=== PATIENT | female | born 1930 | race Caucasian/White ===

== ENCOUNTER 2018-12-10 11:33 | Emergency (ER) | payer MEDICARE ==
[~2018-12-10] VITALS: Ht 162.6 cm; Wt 70.3 kg
[~2018-12-10 11:33] MED LIST: COUMADIN3 MG PO; FLECAINIDE ACE100 MG PO; SIMVASTATIN20 MG PO; TOPROL XL25 MG PO; XARELTO20 MG PO
--- OUTSIDE RECORDS SUMMARY | 2018-12-10 11:36 | XMS REPORT | Continuity of Care Document ---
Author Author [facility] Address [address] [place] [address] Care Team Providers Care Poultry Raiser Name Role Phone [facility] PHYSICIAN, OUT OF PCP Unavailable Sharer, Marilu Cordoba Rndphys Larry Mitchell Admphys Larry Mitchell Attphys Micky Riggins Rndphys Allergies, Adverse Reactions, Alerts Allergen Type Severity Reaction Last Updated Verified Status No Known Drug Allergies Allergy July 01, 2018 Y Active Medications Active Medications Medication Dose Units Route Sig Qty Days Start Date Discontinued Date Status Instructions Metoprolol Succinate 25 MG PO Twice Daily July 03, 2018 Active Flecainide 50 MG PO Twice Daily July 03, 2018 Active Atorvastatin Calcium 40 MG PO Bedtime 30 July 03, 2018 Active Rivaroxaban 15 MG PO Every Evening With Supper 30 July 03, 2018 Active Discontinued Medications Medication Dose Units Route Sig Qty Days Start Date Discontinued Date Status Instructions Rivaroxaban 20 MG PO Daily July 01, 2018 July 03, 2018 Discontinued Aspirin 81 MG PO Daily July 03, 2018 July 03, 2018 Discontinued Problem List Active Problems Medical Problem Onset Date Status Paroxysmal A-fib Active Altered mental status Active Stroke Active Procedures Procedure Date Status Urine Culture July 02, 2018 active MRI Brain WO Con July 01, 2018 completed US Carotid Doppler STANDARD July 01, [address] Brain WO Con June 30, 2018 completed EKG 12 Lead in Emergency Room June 30, 2018 completed Relevant Diagnostic Tests and/or Laboratory Data Laboratory Results Test Date/Time Result Interp. Ref. Range Result Comment Bedside Glucose June 30, 2018 9:17pm 102 mg/dL 70-110 Sodium Level July 01, 2018 3:29am 138 mmol/L 136-145 Potassium Level July 01, 2018 3:29am 4.3 mmol/L 3.5-5.1 Chloride Level July 01, 2018 3:29am 106 mmol/L 98-107 Carbon Dioxide Level July 01, 2018 3:29am 26 mmol/L 23-31 Anion Gap July 01, 2018 3:29am 10 mmol/L 10-20 Blood Urea Nitrogen July 01, 2018 3:29am 18 mg/dL 9.8-20.1 Creatinine July 01, 2018 3:29am 0.82 mg/dL 0.6-1.1 Estimated GFR (MDRD) July 01, 2018 3:29am 66 Reference Range for Estimated GFR: Greater than 90 mL/min/1.73 m2 NOTE: The MDRD equation has not been validated for use with the elderly (over 70 years of age), women, patients with serious comorbid condition or persons with extremes of body size, muscle mass, or nutritional status. Glucose Level July 01, 2018 3:29am 113 mg/dL High 83-110 Calcium Level July 01, 2018 3:29am 9.2 mg/dL 7.8-10.44 Total Bilirubin June 30, 2018 9:18pm 0.6 mg/dL 0.2-1.2 Serum Total Protein June 30, 2018 9:18pm 7.3 g/dL 6.0-8.3 Albumin June 30, 2018 9:18pm 4.6 g/dL 3.4-4.8 Globulin June 30, 2018 9:18pm 2.7 g/dL 2.4-3.5 Albumin/Globulin Ratio June 30, 2018 9:18pm 1.7 g/dL 1.2-2.2 Cholesterol Level July 01, 2018 3:29am 157 mg/dl Alkaline Phosphatase June 30, 2018 9:18pm 75 U/L 40-150 Aspartate Amino Transf (AST/SGOT) June 30, 2018 9:18pm 17 U/L 5-34 Creatine Kinase June 30, 2018 9:18pm 64 U/L 29-168 Troponin I June 30, 2018 9:18pm Less than 0.010 ng/mL Reference Range 0.00 - 0.028 ng/mL Negative 0.029 - 0.29 ng/mL Indeterminate Greater or Equal to 0.3 ng/mL Strongly suggests PA Alanine Aminotransferase (ALT/SGPT) June 30, 2018 9:18pm 11 U/L 8-55 Triglycerides Level July 01, 2018 3:29am 69 mg/dL HDL Cholesterol July 01, 2018 3:29am 53 mg/dL Adult HDL levels in terms of risk for Coronary Heart Disease > or Equal to 60 mg/dL Negative Risk < 40 mg/dL HIGH Risk LDL Cholesterol, Calculated July 01, 2018 3:29am 90 mg/dL Levels in terms of risk for coronary heart disease: Desirable: Less than 130 mg/dL Borderline High Risk: 130 - 159 mg/dL High Risk: Greater than 160 mg/dL Coronary Heart Disease Risk Ratio July 01, 2018 3:29am 3.0 Adult levels in terms of risk for Coronary Heart Disease: Dangerous level: Greater than 8.3 High: 5.6 - 8.3 Average: 3.7 - 5.6 Below average: 2.5 - 3.7 Protection probable: Less than 2.5 White Blood Count July 01, 2018 3:29am 8.2 thou/uL 4.8-10.8 Red Blood Count July 01, 2018 3:29am 4.27 mill/uL 4.20-5.40 Hemoglobin July 01, 2018 3:29am 13.1 g/dL 12.0-16.0 Hematocrit July 01, 2018 3:29am 39.3 % 36.0-47.0 Mean Corpuscular Volume July 01, 2018 3:29am 92.1 fL 78.0-98.0 Mean Corpuscular Hemoglobin July 01, 2018 3:29am 30.8 pg 27.0-31.0 Mean Corpuscular Hemoglobin Concent July 01, 2018 3:29am 33.4 g/dL 32.0-36.0 Red Cell Distribution Width July 01, 2018 3:29am 11.9 % 11.5-14.5 Platelet Count July 01, 2018 3:29am 227 thou/uL 130-400 Mean Platelet Volume July 01, 2018 3:29am 6.7 fL Low 7.4-10.4 Neutrophils % July 01, 2018 3:29am 79.2 % High 42.0-75.0 Lymphocytes % July 01, 2018 3:29am 12.0 % Low 21.0-51.0 Monocytes % July 01, 2018 3:29am 6.7 % 0.0-10.0 Eosinophils % July 01, 2018 3:29am 1.9 % 0.0-10.0 Basophils % July 01, 2018 3:29am 0.2 % 0.0-1.0 Neutrophils # July 01, 2018 3:29am 6.5 thou/uL 1.40-6.50 Lymphocytes # July 01, 2018 3:29am 1.0 thou/uL Low 1.20-3.40 Monocytes # July 01, 2018 3:29am 0.6 thou/uL High 0.11-0.59 Eosinophils # July 01, 2018 3:29am 0.2 thou/uL 0.0-0.7 Basophils # July 01, 2018 3:29am 0.0 thou/uL 0.0-0.2 Prothrombin Time June 30, 2018 9:18pm 13.3 SEC 12.0-14.7 INR International Normalized Ratio June 30, 2018 9:18pm 1.0 ATTENTION: READ CAREFULLY The recommended therapeutic ranges for oral anticoagulant treatments are: Low Intensity: 1.5 - 2.0 Moderate Intensity: 2.0 - 3.0 High Intensity (1): 2.5 - 3.5 High Intensity (2): 3.0 - 4.0 CRITICAL: > 4.0 Activated Partial Thromboplast Time June 30, 2018 9:18pm 34.6 SEC 22.9-36.1 Urine Color July 02, 2018 11:59pm YELLOW Urine Clarity July 02, 2018 11:59pm CLEAR Urine Specific Mellen July 02, 2018 11:59pm 1.005 1.002-1.036 Urine pH July 02, 2018 11:59pm 7.0 5.0-9.0 Urine Leukocyte Esterase July 02, 2018 11:59pm Trace High Urine Nitrite July 02, 2018 11:59pm Negative Urine Protein July 02, 2018 11:59pm Negative mg/dL Urine Glucose (UA) July 02, 2018 11:59pm Negative mg/dL Urine Ketones July 02, 2018 11:59pm Negative mg/dL Urine Urobilinogen July 02, 2018 11:59pm 0.2 mg/dL Urine Bilirubin July 02, 2018 11:59pm Negative Urine Blood July 02, 2018 11:59pm Negative Urine RBC July 02, 2018 11:59pm 0-3 HPF Urine WBC July 02, 2018 11:59pm 0-3 HPF Urine Squamous Epithelial Cells July 02, 2018 11:59pm None Seen HPF Urine Bacteria July 02, 2018 11:59pm None Seen HPF Urine Hyaline Casts July 02, 2018 11:59pm 0-3 HYALINE CAST LPF Urine Culture Reflexed July 02, 2018 11:59pm Yes Chief Complaint and Reason for Visit Encounter Admit Date Chief Complaint Reason for Visit Discharged Inpatient July 01, 2018 4:40pm TIA VS CVA Altered mental status Paroxysmal atrial fibrillation Cerebrovascular accident (CVA) Hospital Discharge Instructions No known hospital discharge instructions. Hospital Discharge Medications Medication Dose Units Route Sig Qty Days Order Date Status Instructions Rivaroxaban 20 MG PO Daily July 01, 2018 Discontinued Aspirin 81 MG PO Daily July 03, 2018 Discontinued Metoprolol Succinate 25 MG PO Twice Daily July 03, 2018 Active Flecainide 50 MG PO Twice Daily July 03, 2018 Active Atorvastatin Calcium 40 MG PO Bedtime 30 July 03, 2018 Active Rivaroxaban 15 MG PO Every Evening With Supper 30 July 03, 2018 Active Encounters Encounter Facility Location Admit Date Discharge Date Attending Provider Discharged Inpatient [facility] [address] July 01, 2018 4:40pm July 03, 2018 4:44pm Larry Mitchell Encounter Diagnosis Onset Date Altered mental status Paroxysmal atrial fibrillation Cerebrovascular accident (CVA) Family History Query Response Instance Date Recorded Comment Family Stroke No Mother July 01, 2018 2:30pm Family Stroke No Father July 01, 2018 2:30pm Family Myocardial Infarction No Mother July 01, 2018 2:30pm Family Myocardial Infarction No Father July 01, 2018 2:30pm Family Diabetes No Mother July 01, 2018 2:30pm Family Diabetes No Father July 01, 2018 2:30pm Family Coronary Artery Disease Yes Mother July 01, 2018 2:30pm Family Coronary Artery Disease No Father July 01, 2018 2:30pm Family Congenital Heart Disease No Mother July 01, 2018 2:30pm Family Congenital Heart Disease No Father July 01, 2018 2:30pm Family Colorectal Cancer No Mother July 01, 2018 2:30pm Family Colorectal Cancer No Father July 01, 2018 2:30pm Family Breast Cancer No Mother July 01, 2018 2:30pm Family Breast Cancer No Father July 01, 2018 2:30pm Functional Status No known functional status. Immunizations No known immunizations. Payers Payer Name Policy Type Covered Green Party Covered Green Party Id Relationship Subscriber Subscriber Id AARP Commercial URSULA BARRAZA [id number] SELF URSULA BARRAZA [id number] MEDICARE Medicare Part A URSULA BARRAZA [id number] SELF URSULA BARRAZA [id number] Plan of Care Instructions Atrial Flutter Ischemic Stroke, [id number] AFTER HOSPITAL CARE PLAN and EDUCATION ISCHEMIC STROKE You have experienced an Ischemic Stroke, which occurs when arteries are blocked by blood clots or by the gradual build-up of plaque or other fatty deposits. Almost 85% of all strokes are ischemic. Risk Factors for Cerebrovascular Accident (Stroke) and TIA *Modifiable risk factors: [ ] High blood pressure: The most important risk factor for stroke. This can be controlled with medications, a healthier diet and maintaining proper body weight. Your Blood Pressure: [ ] Heart disease: Persons with heart disease are twice as likely to suffer a stroke than people with normal hearts. [ ] Cigarette smoking: Stopping smoking reduces the risk of stroke, even in long-time smokers. [ ] High red blood count: Increased red blood cells thicken the blood and make clots more likely. "Blood thinners" may be a necessary treatment. [ ] Transient Ischemic Attacks (TIAs): These are strong predictors of stroke. [ ] High blood cholesterol: Your LDL: [ ] Diabetes: Your Blood Sugar: [ ] Drug/Alcohol abuse [ ] Physical Inactivity [ ] Obesity [ ] Oral contraceptive use [ ] High levels of stress *Non-Modifiable risk factors: Age: Older people are at greater risk than younger people. Gender: Men are at greater risk than women. Race: -Americans have a much greater risk of and disability. Prior Stroke Family History Take your Medications as Prescribed! Follow Up: It is critical that you follow up with your physician after discharge. Talk to them about risk factors, medications, diet and exercise. If you must cancel your appointment, it is very important to reschedule. Warning Signs of Stroke: -Sudden weakness/paralysis or numbness/decreased sensation of the face, arm or leg on one side of the body. -Sudden dimness or loss of vision, particularly in one eye. -Loss of speech, or trouble talking or understanding speech. -Impaired judgment and thought processes. -Impaired swallowing. -Sudden severe headaches with no apparent cause, often described as "the worst headache I've ever had." -Unexplained dizziness, unsteadiness or sudden falls, especially along with any of the previous symptoms. Any one of these signs could mean a stroke, so act F.A.S.T.: F stands for Face (Look for uneven smile). A stands for Arm (Check if one arm is weak). S stands for Speech (Listen for slurred speech). T stands for Time (Call 911 right away). Stroke is an emergency!! If you experience any of these symptoms, call 911 immediately. Treatment is more effective if started early on. Every minute counts!! TIME IS BRAIN! Social History Query Response Date Recorded Comment Smoking Status Never smoker July 01, 2018 4:43pm Vital Signs Vital Reading Result Reference Range Collection Date/Time Height 1.63 m July 01, 2018 2:30pm Weight 79.787 kg July 01, 2018 2:30pm Temperature 97.4 F 97.6 F-99.6 F July 03, 2018 3:29pm Pulse 69 BPM 60-100 July 03, 2018 3:29pm Respiration 16 RPM 12-20 July 03, 2018 3:29pm Pulse Oximetry 97 % 95-100 July 03, 2018 3:29pm Blood Pressure Systolic 128 90-140 July 03, 2018 3:29pm Blood Pressure Diastolic 87 60-90 July 03, 2018 3:29pm Body Mass Index 30.2 July 01, 2018 2:30pm
--- OUTSIDE RECORDS SUMMARY | 2018-12-10 11:36 | XMS REPORT | Encounter Summary ---
Author Organization Unknown Address [address] [place] [address] Phone [phone] Care Team Providers Care Manager Technical Services Name Role Phone Dr. Osbaldo Huang 3 [phone] Reason for Visit AWV Annual Wellness Visit Female (VFP) Instructions 1. Advance directive discussed with patient advance care planning: care instructions 2. Depression screening 3. Body mass index 30+ - obesity body mass index: care instructions 4. Immunization learning about healthy weight 5. Screening mammography mammogram: about this test MAMMO, screening, digital, bilateral 6. Screening for osteoporosis bone density 7. Screening for malignant neoplasm of colon fecal occult blood, stool metoprolol succinate ER 25 mg tablet,extended release 24 hr 8. Pruritus of vagina metronidazole 0.75 % vaginal gel 9. Chronic kidney disease stage 3 10. Osteoporosis alendronate 70 mg tablet vitamin D, 25-hydroxy, total, serum TSH, serum or plasma 11. Long-term current use of anticoagulant CBC w/ auto diff 12. Atrial fibrillation 13. Hypercholesterolemia lipid panel, serum CMP, serum or plasma 14. Anxiety 15. Essential hypertension Discussion Note: None recorded. Plan of Care Patient Instructions Screening Recommendations 1. Vaccines Pneumococcal: discussed today and information sent with patient in their Annual Wellness health folder Influenza: discussed today and information sent with patient in their Annual Wellness health folder Shingles: discussed today and information sent with patient in their Annual Wellness health folder Tetanus: discussed today and information sent with patient in their Annual Wellness health folder 2. Mammography Screening: discussed today and information sent with patient in their Annual Wellness health folder 3. Colorectal cancer Screening Colonoscopy: discussed today and information sent with patient in their Annual Wellness health folder Fecal Occult Blood: discussed today and information sent with patient in their Annual Wellness health folder 4. Bone Mass Measurement: discussed today 5. Pap test / Pelvic Exam Screening: discussed today 6. Eye Exam Screening: discussed today 7. Cholesterol Screening: discussed today 8. Diabetes Screening: discussed today It was good to see you in the office today for your Medicare Annual Wellness Visit. You have been provided some information on healthy nutrition, including a diet rich in fruits and vegetables, minimizing simple carbohydrates, salt, and saturated fats. I want to encourage regular cardiovascular exercise such as walking at least 30 minutes daily, 5 times per week. Please remember to schedule any preventive health measures that we talked about today. You have also been provided education on fall prevention and community- based lifestyle interventions to help reduce health risks and promote healthy living in your Annual Wellness folder. Reminders Provider Appointments None recorded. Lab Fecal Occult Blood, Stool 06/05/2018 [facility] Vitamin D, 25-Hydroxy, Total, Serum 06/05/2018 [facility] TSH, Serum or Plasma 06/05/2018 [facility] CBC W/ Auto Diff 06/05/2018 [facility] Lipid Panel, Serum 06/05/2018 [facility] CMP, Serum or Plasma 06/05/2018 [facility] Referral None recorded. Procedures None recorded. Surgeries None recorded. Imaging MAMMO, Screening, Digital, Bilateral 06/05/2018 [facility] Bone Density 06/05/2018 [facility] Medications Name Start Date alendronate 70 mg tablet Take 1 tablet every week by oral route. Aspir-81 81 mg tablet,delayed release Take 1 tablet every day by oral route. flecainide 50 mg tablet twice a day metoprolol succinate ER 25 mg tablet,extended release 24 hr 1 po twice a day metronidazole 0.75 % vaginal gel Insert 1 applicatorful every day by vaginal route for 7 days. simvastatin 20 mg tablet Take 1 tablet every day by oral route. Xarelto 10 mg tablet Take 1 tablet every day by oral route. Medications Administered None recorded. Vitals Height Weight BMI Blood Pressure 5 ft 3.5 in 174.4 lbs 30.4 kg/m2 154/84 mm[Hg] Lab Results Date Name Specimen Result Interpretation Description Value Range Status Address 06/15/2018 Fecal Occult Blood, Stool Fecal Globin by Immunochemistry not detected Final [facility]: [address] Ven[address] 06/05/2018 CBC W/ Auto Diff Wbc 5.47 x10*3/L 3.98-10.04 x10*3/L Final [facility]: [facility] Yael [address] Rbc 4.70 10*12/L 3.93-5.22 10*12/L Final [facility] [facility] Hemoglobin 14.20 g/dL 11.20-15.70 g/dL Final [facility]: [address] [facility] Hematocrit 43.7 % 34.1-44.9 % Final [facility]: [address] [facility] Mcv 93.0 fL 80.0-100.0 fL Final [facility]: [address] [facility] Mch 30.2 pg 25.6-32.2 pg Final [facility]: [address] [facility] Mchc 32.5 g/dL 32.2-35.5 g/dL Final [facility]: [address] [facility] RDW-SD 43.4 fL 36.4-46.3 fL Final [facility]: [address] [place] [address] Platelet Count 201.0 k/uL 182.0-369.0 k/uL Final [facility]: [address] [place] [address] Mpv 9.9 fL 7.5-11.5 fL Final [facility]: [address] [place] [address] Neut% 58.7 % 34.0-71.1 % Final [facility]: [address] [place] [address] Lymph% 22.1 % 19.3-51.7 % Final [facility]: [address] [place] [address] Mon% 12.2 % 4.7-12.5 % Final [facility]: [address] [facility] High Eos% 6.6 % 0.7-5.8 % Final [facility]: [address] [place] [address] Baso% 0.4 % 0.1-1.2 % Final [facility]: [address] [facility] Neut# 3.2 x10*3/L 1.6-6.1 x10*3/L Final [facility]: [address] [place] [address] Lymph# 1.2 x10*3/L 1.2-3.7 x10*3/L Final [facility]: [address] [facility] Mon# 0.7 x10*3/L 0.2-0.9 x10*3/L Final [facility]: [address] [place] Eos# 0.36 x10*3/L 0.04-0.36 x10*3/L Final [facility]: [address]eg[address] [place] [address] [place] Baso# 0.02 x10*3/L 0.01-0.08 x10*3/L Final [facility]: [facility] [facility] 06/05/2018 CMP, Serum or Plasma Alt 13 U/L 0-55 U/L Final [facility]: [address] Ast 17 U/L 5-34 U/L Final [facility]: [address] Bun 15.4 mg/dL 9.8-20.1 mg/dL Final [facility]: [address]abhu [address] Alk Phos 61 unit/L 40-150 unit/L Final [facility]: [address] High Glucose 100 mg/dL 70-99 mg/dL Final [facility]: [address] Albumin 4.1 g/dL 3.5-5.0 g/dL Final [facility]: [address] Creatinine 0.92 mg/dL 0.57-1.11 mg/dL Final [facility]: [address] ABNORMAL eGFR Non- 58 mL/min/1.73m2 Final [facility]: [address] Total Bilirubin 0.8 mg/dL 0.2-1.2 mg/dL Final [facility]: [address] eGFR - >60 mL/min/1.73m2 Final [facility]: [address] Sodium 142 mEq/L 136-145 mEq/L Final [facility]: [address]abhu [address] Potassium 4.9 mEq/L 3.5-5.1 mEq/L Final [facility]: [address] Chloride 106 mmol/L 98-107 mmol/L Final [facility]: [address] Total Protein 6.7 g/dL 6.4-8.3 g/dL Final [facility]: [address]abhu [address] Calcium 9.9 mg/dL 8.4-10.2 mg/dL Final [facility]: [address] Co2 29.4 mmol/L 23.0-31.0 mmol/L Final [facility]: [address] Anion Gap 7 calc Final [facility]: [address] 06/05/2018 Lipid Panel, Serum Hdl 52 mg/dL 40-60 mg/dL Final [facility]: [address] Triglyceride 124 mg/dL 0-149 mg/dL Final [facility]: [address] VLDL Calc. 25 mg/dL Final [facility]: [address] cholesterol/HDL Ratio 3.1 mg/dL Final [facility]: [address] non-HDL Cholesterol Calc. 110 mg/dL 0-160 mg/dL Final [facility]: [address]hu [address] Cholesterol 162 mg/dL 0-199 mg/dL Final [facility]: [address] LDL Calc. 85 mg/dL 0-130 mg/dL Final [facility]: [address] 06/05/2018 TSH, Serum or Plasma Tsh 1.244 uIU/mL 0.350-4.940 uIU/mL Final [facility]: [address] 06/05/2018 Vitamin D, 25-Hydroxy, Total, Serum Vitamin D 25OH 39.2 NG/mL 30.0-96.0 NG/mL Final [facility]: [address] Allergies Code Code System Name Reaction Severity Status Onset NKDA Problems Name Status Onset Date Source Long-term Current Use of Anticoagulant Active 10/25/2015 History Hypercholesterolemia Active 01/30/2016 Anxiety Active 01/30/2016 Atrial Fibrillation Active 01/30/2016 Osteoporosis Active 03/07/2017 Acute Urinary Tract Infection Active 04/19/2017 Chronic Kidney Disease Stage 3 Active 08/27/2017 Obesity Active 06/26/2018 Essential Hypertension Active 06/26/2018 Procedures Date Name Performed by 03/31/1974 Hysterectomy (Total) Information not available 06/05/2018 MAMMO, Screening, Digital, Bilateral [facility] [address] [place], [place] [id number] (Work Place) 06/05/2018 Bone Density [facility] [address] [facility] [address] [place] [address] (Work Place) Vaccine List Vaccine Type influenza, high dose seasonal 01/25/2015 12/26/2015 influenza, injectable, quadrivalent 01/29/2017 influenza, unspecified formulation 11/29/2017 pneumococcal conjugate PCV 13 12/26/2015 Social History Smoking Status Never Smoker Past Encounters 06/05/2018 Advance Directive Discussed with Patient; Depression Screening; Body Mass Index 30+ - Obesity; Immunization; Screening Mammography; Screening for Osteoporosis; Screening for Malignant Neoplasm of Colon; Pruritus of Vagina; Chronic Kidney Disease Stage 3; Osteoporosis; Long-term Current Use of Anticoagulant; Atrial Fibrillation; Hypercholesterolemia; Anxiety; Essential Hypertension Jasvir Slulivan MD: [address] [facility], [address], [place] [address], Ph. History of Present Illness Mini Cog Reported By: Patient Functional Ability: Personal/Social/ Draw a clock and write in the numbers in the correct place, and set the time to 10 minutes after 11 o'clock was completed correctly? Yes, 3 word recall: Your nurse or doctor will ask you to remember 3 words. In 5 minutes, they will ask you to repeat them. Patient recalled 3 words Hypertension F/U Reported By: Patient HPI: Medications: taking medications as directed, no side effects from medication. Lifestyle: limiting/avoiding salt, compliant with low salt diet, not exercising regularly. Associated Symptoms: no dizziness, no lightheadedness, no chest pain, no shortness of breath, no palpitations, no edema, no calf pain with exertion, no headache Review of Systems Comprehensive General Adult ROS Reported By: Patient Constitutional: Constitutional: ; no fatigue . weight gain lbs/yr. / weight loss lbs/yr Eyes: Eyes: no vision change ENMT: Ears: no difficulty hearing. Nose: no sinus problems. Mouth/Throat: no oral abnormalities Cardiovascular: Cardiovascular: no chest pain, no shortness of breath when walking, no palpitations; no lower extremity edema Respiratory: Respiratory: no cough, no shortness of breath Gastrointestinal: Gastrointestinal: no abdominal pain, no nausea, no vomiting, no diarrhea, no GERD; no rectal bleeding Genitourinary: Genitourinary: no incontinence, no increased frequency; no significant nocturia Musculoskeletal: Musculoskeletal: no muscle aches, no arthralgias/joint pain, no back pain; no joint swelling Integumentary: Skin: no abnormal mole, no rashes Neurologic: Neurologic: no loss of consciousness, no weakness, no numbness, no headaches; no memory loss Psychiatric: Psych: no depression, sleep disturbances, anxiety Endocrine: Endocrine: ; no increased thirst . No increased urination . No significant fatigue . wt change Hematologic/Lymphatic: Hematologic/Lymphatic no excessive bleeding Allergic/Immunologic: Allergy/Immunologic: no itching, no frequent sneezing Physical Exam General Adult Exam (male) Reported By: Patient Constitutional: General Appearance: healthy-appearing, well-nourished. Level of Distress: NAD Psychiatric: Mental Status: active and alert, normal affect Head: Head: normocephalic Eyes: Lids and Conjunctivae: non-injected ENMT: Ears: no lesions on external ear. Hearing: no hearing loss. Nose: no lesions on external nose Neck: Neck: supple, trachea midline. Lymph Nodes: no cervical LAD. Thyroid: no enlargement, non-tender Lungs: Respiratory effort: no dyspnea. Auscultation: breath sounds normal Cardiovascular: Heart Auscultation: RRR, normal S1, normal S2 Musculoskeletal:: Motor Strength and Tone: normal. Joints, Bones, and Muscles: normal movement of all extremities. Extremities: no cyanosis, no edema Neurologic: Gait and Station: normal gait
--- OUTSIDE RECORDS SUMMARY | 2018-12-10 11:36 | XMS REPORT | Encounter Summary ---
Author Organization Unknown Address [address] [place] [address] Phone [phone] Care Team Providers Care Mechanical Facilities Technician Name Role Phone Dr. Osbaldo Huang 3 [phone] Reason for Visit AWV Annual Wellness Visit Female (VFP) Instructions 1. Advance directive discussed with patient advance care planning: care instructions 2. Depression screening 3. Body mass index 30+ - obesity body mass index: care instructions 4. Immunization learning about healthy weight Pneumovax 23 25 mcg/0.5 mL injection syringe 5. Screening mammography mammogram: about this test [...] recorded. Lab Fecal Occult Blood, Stool 06/05/2018 [facility] Vitamin D, 25-Hydroxy, Total, Serum 06/05/2018 [facility] TSH, Serum or Plasma 06/05/2018 [facility] CBC W/ Auto Diff 06/05/2018 [facility] Lipid Panel, Serum 06/05/2018 [facility] CMP, Serum or Plasma 06/05/2018 [facility] Referral None recorded. Procedures None recorded. Surgeries None recorded. Imaging MAMMO, Screening, Digital, Bilateral 06/05/2018 [facility] Bone Density 06/05/2018 [facility] Medications Name Start Date alendronate 70 mg [...] Fecal Globin by Immunochemistry not detected Final [facility]: [facility] Yael [address] 06/05/2018 CBC W/ Auto Diff Wbc 5.47 x10*3/L 3.98-10.04 x10*3/L Final [facility]: [address] [place] [address] Rbc 4.70 10*12/L 3.93-5.22 10*12/L Final [facility]: [address] [place] Hemoglobin 14.20 g/dL 11.20-15.70 g/dL Final [facility]: [address] [place] Hematocrit 43.7 % 34.1-44.9 % Final [facility]: [address] [place] Mcv 93.0 fL 80.0-100.0 fL Final [facility] [address] [facility] Mch 30.2 pg 25.6-32.2 pg Final [facility]: [address] [facility] Mchc 32.5 g/dL 32.2-35.5 g/dL Final [facility]: [address] [facility] RDW-SD 43.4 fL 36.4-46.3 fL Final [facility]: [address] [facility] Platelet Count 201.0 k/uL 182.0-369.0 k/uL Final [facility]: [address] [facility] Mpv 9.9 fL 7.5-11.5 fL Final [facility]: [address] [facility] Neut% 58.7 % 34.0-71.1 % Final [facility]: [address] [facility] Lymph% 22.1 % 19.3-51.7 % Final [facility]: [address] [facility] Mon% 12.2 % 4.7-12.5 % Final [facility]: [address] [facility] High Eos% 6.6 % 0.7-5.8 % Final [facility]: [address] [place] [address] Baso% 0.4 % 0.1-1.2 % Final [facility]: [address] [facility] Neut# 3.2 x10*3/L 1.6-6.1 x10*3/L Final [facility]: [address] Lymph# 1.2 x10*3/L 1.2-3.7 x10*3/L Final [facility]: [address], [place] Mon# 0.7 x10*3/L 0.2-0.9 x10*3/L Final [facility]: [address] [place] Eos# 0.36 x10*3/L 0.04-0.36 x10*3/L Final [facility]: [address] [place] Baso# 0.02 x10*3/L 0.01-0.08 x10*3/L Final [facility]: [address] [place] 06/05/2018 CMP, Serum or Plasma Alt 13 U/L 0-55 U/L Final [facility]: [address] Ast 17 U/L 5-34 U/L Final [facility]: [address]ang [address] [place] [address] Bun 15.4 mg/dL 9.8-20.1 mg/dL Final [facility]: [address] Alk Phos 61 unit/L 40-150 unit/L Final [facility]: [address]ang [address] [place] [address] High Glucose 100 mg/dL 70-99 mg/dL Final [facility]: [address] Albumin 4.1 g/dL 3.5-5.0 g/dL Final [facility]: [address] [place] [address] Creatinine 0.92 mg/dL 0.57-1.11 mg/dL Final [facility]: [address] [place] [address] ABNORMAL eGFR Non- 58 mL/min/1.73m2 Final [facility]: [address] Total Bilirubin 0.8 mg/dL 0.2-1.2 mg/dL Final [facility]: [address] eGFR - >60 mL/min/1.73m2 Final [facility]: [address] [facility] Sodium 142 mEq/L 136-145 mEq/L Final [facility]: [address] Potassium 4.9 mEq/L 3.5-5.1 mEq/L Final [facility]: [address] Chloride 106 mmol/L 98-107 mmol/L Final [facility]: [address] Total Protein 6.7 g/dL 6.4-8.3 g/dL Final [facility]: [address] Calcium 9.9 mg/dL 8.4-10.2 mg/dL Final [facility]: [address] Co2 29.4 mmol/L 23.0-31.0 mmol/L Final [facility]: [address] Anion Gap 7 calc Final [facility]: [address] prabhu [place] [address], [place] 06/05/2018 Lipid Panel, Serum Hdl 52 mg/dL 40-60 mg/dL Final [facility]: [address] Triglyceride 124 mg/dL 0-149 mg/dL Final [facility]: [address] VLDL Calc. 25 mg/dL Final [facility]: [address] cholesterol/HDL Ratio 3.1 mg/dL Final [facility]: [address] non-HDL Cholesterol Calc. 110 mg/dL 0-160 mg/dL Final [facility]: [address] Cholesterol 162 mg/dL 0-199 mg/dL Final [facility]: [address] LDL Calc. 85 mg/dL 0-130 mg/dL Final [facility]: [address]abhu [place] [address], [place] 06/05/2018 TSH, Serum or Plasma Tsh 1.244 uIU/mL 0.350-4.940 uIU/mL Final [facility]: [address]hu [place] [address], [place] 06/05/2018 Vitamin D, 25-Hydroxy, Total, Serum Vitamin D 25OH 39.2 NG/mL 30.0-96.0 NG/mL Final [facility]: [address] Allergies Code Code System Name Reaction [...] not available 06/05/2018 MAMMO, Screening, Digital, Bilateral [facility] [address] [facility] [address] [place] [address] (Work [address]) 06/05/2018 Bone Density [facility] [facility] [address] [place] [address] (Work Place) Vaccine List Vaccine [...] Atrial Fibrillation; Hypercholesterolemia; Anxiety; Essential Hypertension Jasvir Sullivan MD: [id number] [facility], [address], [place] [address], Ph. History of Present Illness Mini Cog [...]
--- OUTSIDE RECORDS SUMMARY | 2018-12-10 11:36 | XMS REPORT | Encounter Summary ---
Author Organization Unknown Address [address] [place] [address] Phone [phone] Care Team Providers Care Forklift Wheel Loader Name Role Phone Dr. Osbaldo Huang 3 [phone] Reason for Visit other - see typed reason Instructions 1. History of TIA 2. Senile purpura Discussion Note: None recorded. Patient educational handouts: No information available. Plan of Care Reminders Provider Appointments None recorded. Lab None recorded. Referral None recorded. Procedures None recorded. Surgeries None recorded. Imaging None recorded. Medications Name Start Date alendronate 70 mg tablet Take 1 tablet every week by oral route. Aspir-81 81 mg tablet,delayed release Take 1 tablet every day by oral route. atorvastatin 40 mg tablet flecainide 50 mg tablet twice a day metoprolol succinate ER 25 mg tablet,extended release 24 hr 1 po twice a day metronidazole 0.75 % vaginal gel Insert 1 applicatorful every day by vaginal route for 7 days. simvastatin 20 mg tablet Take 1 tablet every day by oral route. Xarelto 15 mg tablet Medications Administered None recorded. Vitals Height Weight BMI Blood Pressure 5 ft 3.5 in 170 lbs 29.6 kg/m2 134/76 mm[Hg] Lab Results Date Name Specimen Result Interpretation Description Value Range Status Address 06/15/2018 Fecal Occult Blood, Stool Fecal Globin by Immunochemistry not detected Final [facility]: [address] [place] [address] Allergies Code Code System Name Reaction Severity Status Onset NKDA Problems Name Status Onset Date Source Long-term Current Use of Anticoagulant Active 10/25/2015 Hypercholesterolemia Active 01/30/2016 Anxiety Active 01/30/2016 Atrial Fibrillation Active 01/30/2016 Osteoporosis Active 03/07/2017 Acute Urinary Tract Infection Active 04/19/2017 Chronic Kidney Disease Stage 3 Active 08/27/2017 Obesity Active 06/26/2018 Essential Hypertension Active 06/26/2018 Problem Active Procedures Date Name Performed by 03/31/1974 Hysterectomy (Total) Information not available Vaccine List Vaccine Type influenza, high dose seasonal 01/25/2015 12/26/2015 influenza, injectable, quadrivalent 01/29/2017 influenza, unspecified formulation 11/29/2017 pneumococcal conjugate PCV 13 12/26/2015 Social History Smoking Status Never Smoker Past Encounters 07/15/2018 History of TIA; Senile Purpura Angela Begum MD: [id number] [facility], [address], [place] [address], Ph. History of Present Illness Note:Was out of town and noticed that she could not control her right hand. Lasted 2-[address] Scan the next day. Had stopped the Xarelto and put her on aspirin due to gums bleeding - has AFIB. Also changed her cholesterol medication to atorvastatin 40mg. Not having problems with the medications. No further issues. Has an appointment with Dr Ca next Friday. Review of Systems:ROS as noted in the HPI Review of Systems None recorded. Physical Exam General Adult Exam (male) Reported By: Patient Constitutional: General Appearance: healthy-appearing, well-nourished, well-developed. Level of Distress: NAD Psychiatric: Mental Status: active and alert. Orientation: to time, to place, to person Lungs: Respiratory effort: no dyspnea. Auscultation: breath sounds normal, CTA except as noted Cardiovascular: Heart Auscultation: RRR, normal S1, normal S2, no murmurs Skin: Inspection and palpation: ; Left arm with purpura in several places
--- OUTSIDE RECORDS SUMMARY | 2018-12-10 11:36 | XMS REPORT | Continuity of Care Document ---
Author Author [facility] Address [address] [place] [address] Care Team Providers Care Yard Hostler Name Role Phone [facility], OUT OF PCP Unavailable Sharer, Marilu Cordoba Rndphys Larry Mitchell Admphys Larry Mitchell Attphys Micky Riggins Rndphys Allergies, Adverse Reactions, Alerts Allergen Type Severity Reaction Last Updated Verified Status No Known Drug Allergies Allergy June 30, 2018 Y Active Medications No medication information available. Problem List No problem information available. Procedures Procedure Date Status MRI Brain WO Con July 01, 2018 completed US Carotid Doppler STANDARD July 01, [address] Brain WO Con June 30, 2018 completed EKG 12 Lead in Emergency Room June 30, 2018 active Relevant Diagnostic Tests and/or Laboratory Data Laboratory [...] or Equal to 0.3 ng/mL Strongly suggests [place] Alanine Aminotransferase (ALT/SGPT) June 30, 2018 9:18pm [...] June 30, 2018 9:18pm 34.6 SEC 22.9-36.1 Chief Complaint and Reason for Visit Encounter Admit Date Chief Complaint Reason for Visit Admitted Inpatient June 30, 2018 10:07pm TIA VS CVA Hospital Discharge Instructions No known hospital discharge instructions. Encounters Encounter Facility Location Admit Date Discharge Date Attending Provider Admitted Inpatient [facility] [address] [facility] June 30, 2018 10:07pm Larry Mitchell Functional Status No known functional status. Immunizations No known immunizations. Payers Payer Name Policy Type Covered Green Party Covered Green Party Id Relationship Subscriber Subscriber Id AARP Commercial URSULA BARRAZA [id number] SELF URSULA BARRAZA [id number] MEDICARE Medicare Part A URSULA BARRAZA [id number] SELF URSULA BARRAZA [id number] Plan of Care No known plan of care. Social History No known social history. Vital Signs No known vital signs results.
--- OUTSIDE RECORDS SUMMARY | 2018-12-10 11:36 | XMS REPORT | Summary of Care ---
Author Author LINA ONTIVEROS M.D. Organization Unknown Address Unknown Phone Unavailable Care Team Providers Care Mill Control Operator Name Role Phone LINA ONTIVEROS M.D. Unavailable Unavailable SASKIA THORNTON COLINA Unavailable Unavailable Unavailable Unavailable Functional Status Name Dates Details Functional status health issues are not documented Status: Name Dates Details Cognitive status health issues are not documented Status: Problems Name Dates Details Vaginal irritation (623.9, N89.8) Status: Active Lichen sclerosus (701.0, L90.0) Status: Active Lesion of vulva (624.8, N90.89) Status: Active Medications Name Dates Details Metoprolol Tartrate TABS Active Flecainide Acetate TABS * Refills: 0 Active Atorvastatin Calcium 10 MG Oral Tablet * Refills: 0 Active Xarelto TABS * Refills: 0 Active Zolpidem Tartrate 5 MG Oral Tablet * Refills: 0 Active Clobetasol Propionate 0.05 % External Ointment APPLY SPARINGLY TO AFFECTED AREA(S) ONCE DAILY * Quantity: 1 Refills: 2 LINA ONTIVEROS M.D. * Start : 14-Oct-2018 Active 60 GM Tube Allergies and Adverse Reactions Name Dates Details No Known Drug Allergies (Allergy) Status: Active Past Medical History Name Dates Details History of atrial fibrillation (V12.59, Z86.79) Status: Resolved Procedures Procedure Dates Details History of Total Abdominal Hysterectomy Completed Immunization Name Dates Details Immunizations not documented Family History Name Dates Details No pertinent family history (V49.89, Z78.9) Status: Active Social History Name Dates Details - Status: Name Dates Details Never smoker Vital Signs Date Test Result Details [id number] BP Systolic 131 mm[Hg] Status: Comments: Location: RUE; Position: Sitting BP Diastolic 76 mm[Hg] Status: Comments: Location: RUE; Position: Sitting Height 64 in Status: Weight 173.375 lb Status: Body Mass Index Calculated 29.76 kg/m2 Status: Body Surface Area Calculated 1.84 m2 Status: Temperature 97.4 f Status: Comments: Method: Tympanic Heart Rate 57 /min Status: Respiration Rate 16 /min Status: :41 BP Systolic 133 mm[Hg] Status: Comments: Location: LUE; Position: Sitting BP Diastolic 71 mm[Hg] Status: Comments: Location: LUE; Position: Sitting Height 64 in Status: Weight 172.125 lb Status: Body Mass Index Calculated 29.55 kg/m2 Status: Body Surface Area Calculated 1.84 m2 Status: Temperature 97.6 f Status: Comments: Method: Temporal Heart Rate 55 /min Status: Respiration Rate 17 /min Status: :20 BP Systolic 129 mm[Hg] Status: Comments: Location: RUE; Position: Sitting BP Diastolic 79 mm[Hg] Status: Comments: Location: RUE; Position: Sitting Height 64 in Status: Weight 173 lb Status: Body Mass Index Calculated 29.7 kg/m2 Status: Body Surface Area Calculated 1.84 m2 Status: Temperature 97.4 f Status: Comments: Method: Oral Heart Rate 57 /min Status: Results Date Description Value Details :30 [[facility]] NEISSERIA GONORRHOEAE (GC) CULTURE Comments: Source: GenitalBody Site: NEISSERIA GONORRHOEAE (GC) CULTURE Cancel Reason: Error :30 [[facility]] GC/CT by Amp Det (APTIMA) Source APTIMA Vaginal N gonorrhea by Amp Det (APTIMA) Negative Range: Negative Comments: The APTIMA assay is a target amplification nucleic acid probe test utilizingtarget capture for the qualitative detection and differentiation of ribosomalRNA from Neisseria gonorrhoeae to aid in the diagnosis of disease fromsymptomatic and asymptomatic individuals using the PANTHER System.This assay utilizes FDA cleared IVD reagents. Performance characteristics havebeen verified by the [facility] within [facility].The Molecular Diagnostic Laboratory is authorized under the Clinical LaboratoryImprovement Amendments of 1988 (CLIA-88) to perform high complexity testing. C trachomatis by Amp Det (APTIMA) Negative Range: Negative Comments: The APTIMA assay is a target amplification nucleic acid probe test utilizingtarget capture for the qualitative detection and differentiation of ribosomalRNA from Chlamydia trachomatis to aid in the diagnosis of disease fromsymptomatic and asymptomatic individuals using the PANTHER System.This assay utilizes FDA cleared IVD reagents. Performance characteristics havebeen verified by the [facility] within [facility].The [facility] Diagnostic Laboratory is authorized under the Clinical LaboratoryImprovement Amendments of 1988 (CLIA-88) to perform high complexity testing. [id number]:30 [[facility]] BV/ VAGINITIS PANEL DNA PROBE AFFIRM Trichomonas vaginalis DNA Negative Range: Negative Gardnerella vaginalis DNA Negative Range: Negative Vale sp. DNA Negative Range: Negative 65-Ttc-95536:00 . Vish - Surgical Biopsy Comments: Department of Pathology & Laboratory Medicine For: MSB 2.[address] [place] [address] [address] Phone: [phone] Email: [email or web address] [email or web address] Report Diagnosis:1. Vulva, at 1 o'clock, biopsy: - Negative for dysplasia. - GMS and PAS negative for fungal elements - Squamous mucosa with hyperkeratosis, dermal sclerosis, and significant mixed inflammation including some eosinophils. - See comment. 2. Vulva, at 11 o'clock, biopsy: - Negative for dysplasia. - GMS and PAS negative for fungal elements - Squamous mucosa with hyperkeratosis, dermal sclerosis, and significant mixed inflammation including some eosinophils. - See comment. Chloe Niño Electronically Signed ([id number]) 1. 2. The histologic changes are not specific, and the differential diagnosis includeslichen sclerosus, contact dermatitis, and drug reaction, and please correlate withclinical findings. Dr. Richard reviewed the case. Specimen Submitted: 1. 1 o'clock2. 11 o'clock Clinical Data:1. Lesion of vulva, vaginal irritation Gross Description:1. Received in formalin in a container and labeled with the patient's name Sameer, medical record number and "vulva biopsy at 1 o'clock" are two 0.3 x 0.2 x 0.2 cmirregular horne-yellow soft tissue which are submitted in toto in cassette 1A. 2. Received in formalin in a container and labeled with the patient's name, medicalrecord number and "vulva biopsy at 11 o'clock" is a 0.4 x 0.4 x 0.2 cm irregulartan-yellow soft tissue which is submitted in toto in cassette 2A. 2 blocks, 4 H&E, 2 GMS fungus, 2 PAS-D Microscopic Description:1. Microscopic examination is performed, specimens 1 and 2, and the findings areincorporated in the diagnosis Teaching Physician StatementI have personally reviewed the resident's preliminary and all specimen preparation andhave personally issued this report. Surgical Biopsy REPORT Plan of Care Name Dates Details Planned Observations Planned Goals not documented Planned Encounters Appointment; LINA ONTIVEROS M.D. On: 04-Jan-2019 10:00 Interventions Provided Medication Changes* Clobetasol Propionate 0.05 % External Ointment - Start Discussion/Summary* 87yo G0 with PMH of Afib and remote h/o hysterectomy with vulvar lesion presents for follow-up. * 1. Vulvar lesions: * - Discussed biopsy results (see HPI). * - Will empirically treat for lichen sclerosis with clobetasol. * RTC in 3 months to reassess. * Manoj Ontiveros MD * [facility]. Instructions Name Dates Details Instructions not documented Encounters Appointment; LINA ONTIVEROS M.D. Encounter Diagnosis: Problem not documented On: 17-Sep-2018 9:30 Appointment; LINA ONTIVEROS M.D. Encounter Diagnosis: Problem not documented On: 25-Sep-2018 10:00 Appointment; LIAN ONTIVEROS M.D. Encounter Diagnosis: Problem not documented On: 14-Oct-2018 10:30
--- OUTSIDE RECORDS SUMMARY | 2018-12-10 11:37 | XMS REPORT ---
Author Author [facility] Address Unknown Phone Unavailable Care Team Providers Care Schedule Hanger Name Role Phone Larry Mitchell Unavailable Unavailable Problems This patient has no known problems. Allergies, Adverse Reactions, Alerts This patient has no known allergies or adverse reactions. Medications This patient has no known medications. Results Test Description Test Time Test Comments Text Results Atomic Results Result Comments Culture, Urine 2018-07-04 14:54:00 Culture, Urine (test code=URC) NG48 [id number] 17:21:00* Test Item Value Reference Range Comments Urinalysis (test code=UACLR) YELLOW Yellow Urinalysis (test code=UACLY) CLEAR Clear Urinalysis (test code=SPGR) 1.005 1.002-1.036 Urinalysis (test code=DELIA) 7.0 5.0-9.0 Urinalysis (test code=UALEU) Trace Negative Urinalysis (test code=UANIT) Negative Negative Urinalysis (test code=PROUADIP) Negative mg/dL Neg-Trace Urinalysis (test code=GLUCU) Negative mg/dL Negative Urinalysis (test code=KETU) Negative mg/dL Negative Urinalysis (test code=UAUROB) 0.2 mg/dL 0.2-1.0 Urinalysis (test code=UABIL) Negative Negative Urinalysis (test code=UABLD) Negative Negative Urinalysis (test code=UARBC) 0-3 HPF 0-3 Urinalysis (test code=UAWBC) 0-3 HPF 0-3 Urinalysis (test code=UASQUAM) None Seen HPF 0-3 Urinalysis (test code=UABAC) None Seen HPF None Seen Urinalysis (test code=UACAST) 0-3 HYALINE CAST LPF 0-3 Hyaline Urine Source: Urine Clean [id number] 17:21:00* Test Item Value Reference Range Comments Urinalysis (test code=UACRFLXYES) Yes Urine Source: Urine Clean [id number] 04:00:00* Test Item Value Reference Range Comments Chemistry (test code=NA-T) 138 mmol/L 136-145 Chemistry (test code=K-T) 4.3 mmol/L 3.5-5.1 Chemistry (test code=CL) 106 mmol/L 98-107 Chemistry (test code=CO2) 26 mmol/L 23-31 Chemistry (test code=ANGP) 10 mmol/L 10-20 Chemistry (test code=BUN) 18 mg/dL 9.8-20.1 Chemistry (test code=CREATT) 0.82 mg/dL 0.6-1.1 Chemistry (test code=EGFRMDRD) 66 Reference Range for Estimated GFR: Greater than 90 mL/min/1.73 m2NOTE:The MDRD equation has not been validated for use with theelderly (over 70 years of age), women, patien tswith serious comorbid condition or persons with extremes ofbody size, muscle mass, or nutritional status. Chemistry (test code=GLU-T) 113 mg/dL 83-110 Chemistry (test code=CA) 9.2 mg/dL 7.8-10.44 [id number] 04:00:00* Test Item Value Reference Range Comments Chemistry (test code=CHOL) 157 mg/dl < 200 Desired Chemistry (test code=TRIG) 69 mg/dL Less than 150 Chemistry (test code=HDL) 53 mg/dL >60 Neg Risk Adult HDL levels in terms of risk for Coronary Heart Disease > or Equal to 60 mg/dL Negative Risk < 40 mg/dL HIGH Risk Chemistry (test code=LDL) 90 mg/dL Levels in terms of risk for coronary heart disease: Desirable: Less than 130 mg/dL Borderline High Risk: 130 - 159 mg/dL High Risk: Greater than 160 mg/dL Chemistry (test code=CRISK) 3.0 Less than 4.5 Adult levels in terms of risk for Coronary Heart Disease: Dangerous level: Greater than 8.3 High: 5.6 - 8.3 Average: 3.7 - 5.6 Below average: 2.5 - 3.7 Protection probable: Less than 2.5 [id number] 03:49:00* Test Item Value Reference Range Comments Hematology (test code=WBCT) 8.2 thou/uL 4.8-10.8 Hematology (test code=RBCT) 4.27 mill/uL 4.20-5.40 Hematology (test code=HGBT) 13.1 g/dL 12.0-16.0 Hematology (test code=HCTT) 39.3 % 36.0-47.0 Hematology (test code=MCV) 92.1 fL 78.0-98.0 Hematology (test code=MCH) 30.8 pg 27.0-31.0 Hematology (test code=MCHC) 33.4 g/dL 32.0-36.0 Hematology (test code=RDW) 11.9 % 11.5-14.5 Hematology (test code=PLTT) 227 thou/uL 130-400 Hematology (test code=MPV) 6.7 fL 7.4-10.4 Hematology (test code=%NEUT) 79.2 % 42.0-75.0 Hematology (test code=%LYMPH) 12.0 % 21.0-51.0 Hematology (test code=%MONO) 6.7 % 0.0-10.0 Hematology (test code=%EOS) 1.9 % 0.0-10.0 Hematology (test code=%BASO) 0.2 % 0.0-1.0 Hematology (test code=NEUT#) 6.5 thou/uL 1.40-6.50 Hematology (test code=LYMPH#) 1.0 thou/uL 1.20-3.40 Hematology (test code=MONO#) 0.6 thou/uL 0.11-0.59 Hematology (test code=EOS#) 0.2 thou/uL 0.0-0.7 Hematology (test code=BASO#) 0.0 thou/uL 0.0-0.2 [id number] 21:48:00* Test Item Value Reference Range Comments Chemistry (test code=TROPI-R) Less than 0.010 ng/mL < 0.028 Reference Range 0.00 - 0.028 ng/mL Negative 0.029 - 0.29 ng/mL Indeterminate Greater or Equal to 0.3 ng/mL Strongly suggests [place] [id number] 21:44:00* Test Item Value Reference Range Comments Chemistry (test code=NA-T) 139 mmol/L 136-145 Chemistry (test code=K-T) 4.1 mmol/L 3.5-5.1 Chemistry (test code=CL) 104 mmol/L 98-107 Chemistry (test code=CO2) 28 mmol/L 23-31 Chemistry (test code=ANGP) 11 mmol/L 10-20 Chemistry (test code=BUN) 18 mg/dL 9.8-20.1 Chemistry (test code=CREATT) 1.00 mg/dL 0.6-1.1 Chemistry (test code=EGFRMDRD) 53 Reference Range for Estimated GFR: Greater than 90 mL/min/1.73 m2NOTE:The MDRD equation has not been validated for use with theelderly (over 70 years of age), women, patien tswith serious comorbid condition or persons with extremes ofbody size, muscle mass, or nutritional status. Chemistry (test code=GLU-T) 109 mg/dL 83-110 Chemistry (test code=CA) 9.9 mg/dL 7.8-10.44 Chemistry (test code=TBILI-T) 0.6 mg/dL 0.2-1.2 Chemistry (test code=TP) 7.3 g/dL 6.0-8.3 Chemistry (test code=ALB) 4.6 g/dL 3.4-4.8 Chemistry (test code=GLOB) 2.7 g/dL 2.4-3.5 Chemistry (test code=AG) 1.7 g/dL 1.2-2.2 Chemistry (test code=ALP) 75 U/L 40-150 Chemistry (test code=AST) 17 U/L 5-34 Chemistry (test code=ALT) 11 U/L 8-55 [id number] 21:44:00* Test Item Value Reference Range Comments Chemistry (test code=CK) 64 U/L 29-168 [id number] 21:39:00* Test Item Value Reference Range Comments Coagulation (test code=PT-T) 13.3 SEC 12.0-14.7 Coagulation (test code=INR) 1.0 ATTENTION: READ CAREFULLY The recommended therapeutic ranges for oral anticoagulanttreatments are: Low Intensity: 1.5 - 2.0 Moderate Intensity: 2.0 - 3.0 High Intensity (1): 2.5 - 3.5 High Intensity (2): 3.0 - 4.0 CRITICAL: > 4.0 Coagulation (test code=PTT) 34.6 SEC 22.9-36.1 Anticoagulant? NONEMedical Necessity SUSPECT [id number] 21:30:00* Test Item Value Reference Range Comments Accuchek (test code=ACU) 102 mg/dL 70-110 [id number] 21:29:00* Test Item Value Reference Range Comments Hematology (test code=WBCT) 7.2 thou/uL 4.8-10.8 Hematology (test code=RBCT) 4.67 mill/uL 4.20-5.40 Hematology (test code=HGBT) 14.7 g/dL 12.0-16.0 Hematology (test code=HCTT) 43.6 % 36.0-47.0 Hematology (test code=MCV) 93.5 fL 78.0-98.0 Hematology (test code=MCH) 31.5 pg 27.0-31.0 Hematology (test code=MCHC) 33.7 g/dL 32.0-36.0 Hematology (test code=RDW) 12.0 % 11.5-14.5 Hematology (test code=PLTT) 266 thou/uL 130-400 Hematology (test code=MPV) 6.8 fL 7.4-10.4 Hematology (test code=%NEUT) 64.0 % 42.0-75.0 Hematology (test code=%LYMPH) 18.0 % 21.0-51.0 Hematology (test code=%MONO) 11.9 % 0.0-10.0 Hematology (test code=%EOS) 5.0 % 0.0-10.0 Hematology (test code=%BASO) 1.0 % 0.0-1.0 Hematology (test code=NEUT#) 4.6 thou/uL 1.40-6.50 Hematology (test code=LYMPH#) 1.3 thou/uL 1.20-3.40 Hematology (test code=MONO#) 0.9 thou/uL 0.11-0.59 Hematology (test code=EOS#) 0.4 thou/uL 0.0-0.7 Hematology (test code=BASO#) 0.1 thou/uL 0.0-0.2
[2018-12-10 12:04] LABS: BASOPHILS % 0.7 % (0.0-1.0); EOSINOPHILS # (AUTO) 0.2 (0.0-0.4); EOSINOPHILS % 3.3 % (0.0-6.0); HEMATOCRIT 41.8 % (34.2-44.1); HEMOGLOBIN 14.1 g/dL (12.0-16.0); LYMPHOCYTES % 16.3 % (18.0-39.1); MEAN CORPUSCULAR HEMOGLOBIN 31.2 pg (28-32); MEAN CORPUSCULAR HGB CONC 33.7 g/dL (31-35); MEAN CORPUSCULAR VOLUME 92.5 fL (81-99); MONOCYTES # (AUTO) 0.8 (0.2-0.8); MONOCYTES % 13.5 % (4.4-11.3); NEUTROPHILS % 65.9 % (38.7-80.0); PLATELET COUNT 219 x10e3/uL (140-360); RED BLOOD COUNT 4.52 x10e6/uL (3.6-5.1); RED CELL DISTRIBUTION WIDTH 13.1 % (11.7-14.4)
[2018-12-10 12:34] LABS: INR 1.13; PROTHROMBIN TIME 15.1 seconds (11.9-14.5)
[2018-12-10 12:37] LABS: ALBUMIN/GLOBULIN RATIO 1.3 (0.8-2.0); ANION GAP 13.3 mmol/L (8-16); CALCIUM 9.9 mg/dL (8.4-10.2); CREATININE, SERUM 1.03 mg/dL (0.57-1.11); POTASSIUM 4.3 mmol/L (3.5-5.1)
[2018-12-10] MEDS ORDERED: SODIUM CHLORIDE 0.9% 500ML 500 ML IV ONE (13:00)
[2018-12-10 13:03] LABS: BILIRUBIN,URINE NEGATIVE (NEGATIVE); CLARITY,URINE SL CLOUDY (CLEAR); COLOR,URINE YELLOW (YELLOW); KETONES,URINE NEGATIVE (NEGATIVE); LEUKOCYTE ESTERASE ,URINE LARGE (NEGATIVE); NITRITE,URINE NEGATIVE (NEGATIVE); PROTEIN,URINE DIPSTICK NEGATIVE (NEGATIVE); URINE UROBILINOGEN 0.2 mg/dL (0.2 - 1)
[2018-12-10 13:23] LABS: BACTERIA,URINE MODERATE /HPF; EPITHELIAL CELLS,URINE MODERATE /LPF; RENAL EPITHELIAL CELLS,URINE RARE; TRANSITIONAL EPI CELLS,URINE RARE
[2018-12-10] MEDS ORDERED: IOPAMIDOL 370 MG/ML 200 ML INFUS..BTL INJ ONE (14:17)
[2018-12-10] MEDS ORDERED: SODIUM CHLORIDE 0.9% 50ML 50 ML ONE (14:17)
--- NOTE | 2018-12-10 14:22 | Diagnostic Imaging Report ---
EXAM: CT Abdomen and Pelvis WITH intravenous contrast INDICATION: Vaginal bleeding COMPARISON: None. TECHNIQUE: Abdomen and pelvis were scanned utilizing a multidetector helical scanner from the lung base to the pubic symphysis after administration of IV contrast. Coronal and sagittal reformations were obtained. Routine protocol was performed. Scan was performed during portal venous phase. IV CONTRAST: 100mL of Isovue 370 ORAL CONTRAST: Water RADIATION DOSE: Total DLP: 480.1 mGy*cm Dose modulation, iterative reconstruction, and/or weight based adjustment of the mA/kV was utilized to reduce the radiation dose to as low as reasonably achievable. FINDINGS: LOWER THORAX: Mild bibasilar subsegmental atelectasis. HEPATOBILIARY: Mild diffuse hepatic steatosis. No focal liver lesion. No intrahepatic biliary ductal dilation. Normal gallbladder. SPLEEN: No splenomegaly. PANCREAS: Atrophic pancreas. No focal mass or ductal dilation. ADRENALS: No adrenal nodules. KIDNEYS/URETERS: No renal calculi or hydronephrosis. Bilateral subcentimeter renal cysts. PELVIC ORGANS/BLADDER: Status post hysterectomy. PERITONEUM / RETROPERITONEUM: No free air or fluid. LYMPH NODES: No lymphadenopathy. VESSELS: Atherosclerotic calcifications of the nonaneurysmal abdominal aorta and major branches. GI TRACT: Sigmoid and descending colon diverticulosis. No CT evidence of diverticulitis. No abnormal bowel wall thickening. No bowel obstruction. Status post appendectomy. BONES AND SOFT TISSUES: Mild diffuse osteopenia. No acute osseous injury. No suspicious lytic or blastic lesions. Degenerative changes of the visualized spine. IMPRESSION: Sigmoid and descending colon diverticulosis. No CT evidence of diverticulitis. Status post hysterectomy. No free fluid in the abdomen or pelvis. Diffuse hepatic steatosis. Signed by: Jose Rico MD on 12/10/2018 2:06 PM
== END 2018-12-10 15:36 | disposition home or self-care (01) ==
LOC: ER 11:33
DX: R31.0 Gross hematuria (principal); N36.9 Urethral disorder, unspecified; I48.91 Unspecified atrial fibrillation; E78.5 Hyperlipidemia, unspecified
CPT/HCPCS: 36415; 74177; 80053; 81001; 85025; 85610; 85730; 87086; 99284; J7040; Q9967